=== PATIENT | male | born 1955 ===

== ENCOUNTER 2019-01-01 18:59 | Outpatient (CLI) | payer OTHER | END 2019-01-01 20:16 | disposition home or self-care (01) | LOC: EDSEX 18:59 → LAB 18:59 | DX: R97.20 Elevated prostate specific antigen [PSA] (principal) ==

== ENCOUNTER 2019-02-19 07:29 | Outpatient (CLI) | payer OTHER | END 2019-02-19 07:40 | disposition home or self-care (01) | LOC: SONOGRAMA 07:29 | DX: R97.20 Elevated prostate specific antigen [PSA] (principal) ==

== ENCOUNTER 2020-06-10 17:43 | Outpatient (CLI) | payer OTHER | END 2020-06-10 18:00 | disposition home or self-care (01) | LOC: LAB 17:43 | PROVIDERS: ATTEND Urology | DX: R97.20 Elevated prostate specific antigen [PSA] (principal) ==

== ENCOUNTER 2020-07-13 07:08 | Outpatient (CLI) | payer OTHER | END 2020-07-13 07:17 | disposition home or self-care (01) | LOC: SONOGRAMA 07:08 | PROVIDERS: ATTEND Urology | DX: C61 Malignant neoplasm of prostate (principal); D29.1 Benign neoplasm of prostate; R97.20 Elevated prostate specific antigen [PSA] ==